=== PATIENT | male | born 1960 ===

== ENCOUNTER 2019-11-10 17:21 | Inpatient (IN) | payer OTHER, BC ==
[~2019-11-10] VITALS: Ht 172.7 cm; Wt 103.9 kg
[2019-11-10] MEDS ORDERED: GLIP10 PO (17:42)
[2019-11-10 18:25] LABS: Source, Urine Clean Catch
[2019-11-10 18:30] LABS: BASOPHILS ABSOLUTE AUTO 0.03 K/mm3 (0.00-0.23); BASOPHILS PERCENT AUTO 0 % (0-2); EOSINOPHILS ABSOLUTE AUTO 0.02 K/mm3 (0.00-0.68); EOSINOPHILS PERCENT AUTO 0 % (0-6); Hematocrit 45.2 % (37.0-53.0); Hemoglobin 15.1 g/dL (13.5-17.5); IMMATURE GRAN ABSOLUTE AUTO 0.04 K/mm3 (0.00-0.10); IMMATURE GRAN PERCENT AUTO 0 % (0-1); LYMPHOCYTES ABSOLUTE AUTO 1.76 K/mm3 (0.84-5.20); LYMPHOCYTES PERCENT AUTO 15 % (21-46); MONOCYTES ABSOLUTE AUTO 1.08 K/mm3 (0.16-1.47); MONOCYTES PERCENT AUTO 9 % (4-13); Mean Corpuscular HGB 30.4 pg (26.0-34.0); Mean Corpuscular HGB Conc 33.4 g/dL (31.5-36.5); Mean Corpuscular Volume 91 fL (80-100); Mean Platelet Volume 10.9 fL (9.1-12.4); NEUTROPHILS PERCENT AUTO 76 % (41-73); Platelet Count 249 K/mm3 (150-400); RDW Coefficient Variation 14.1 % (11.7-14.2); RDW Standard Deviation 47.8 fL (35.1-46.3); Red Blood Cell Count 4.97 M/mm3 (4.30-5.90); White Blood Cell Count 12.03 K/mm3 (4.00-11.30)
[2019-11-10 18:42] LABS: Bilirubin, Urine Neg (Neg); Blood, Urine 4+ (Neg); Glucose Qualitative, Urine 1+ (Neg); Ketones, Urine 1+ (Neg); Leukocyte Esterase, Urine 1+ (Neg); Nitrite, Urine Neg (Neg); Protein, Urine 3+ (Neg); Urobilinogen, Urine 1+ (Normal)
[2019-11-10 18:51] LABS: Alanine Aminotransfer (ALT/SGP 34 U/L (12-78); Albumin, Blood 3.4 g/dL (3.4-5.0); Albumin/Globulin Ratio 0.8 (0.8-1.8); Alk Phos 89 U/L (50-136); Anion Gap 7 mmol/L (6-16); Aspartate Aminotrans (AST/SGOT 16 U/L (12-37); Bilirubin, Total 0.8 mg/dL (0.1-1.0); Blood Urea Nitrogen 11 mg/dL (8-24); Bun/Creatinine Ratio 11.7 (12.0-20.0); CO2, Blood 26 mmol/L (21-32); Calcium, Blood 9.1 mg/dL (8.5-10.1); Chloride, Blood 98 mmol/L (98-108); Creatinine, Blood 0.94 mg/dL (0.60-1.20); Globulin, Blood 4.2 g/dL (2.2-4.0); Glomerular Filtration Rate >60 (60-); Glucose, Blood 201 mg/dL (70-99); Potassium, Blood 3.6 mmol/L (3.5-5.5); Sodium, Blood 131 mmol/L (136-145); Total Protein, Blood 7.6 g/dL (6.4-8.2); Troponin I <0.015 ng/mL (0.000-0.040)
[2019-11-10 19:24] LABS: Appearance, Urine Clear (Clear); Color, Urine Amber (P-Yellow)
[2019-11-10 19:27] LABS: Bacteria Few /hpf; Mucus Mod (0-Heavy); Squamous Epithelial Cells Rare /hpf (Few)
[2019-11-10] MEDS ORDERED: ATEN25 PO (22:03)
[2019-11-10] MEDS ORDERED: LOSARTAN-HCTZ1 EAC5 PO (22:03)
[2019-11-10] MEDS ORDERED: ROSU10TA PO (22:04)
[2019-11-10] MEDS ORDERED: EXCEDRIN EXTRA1 EACH PO (23:36)
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
[2019-11-11 07:27] LABS: BASOPHILS ABSOLUTE AUTO 0.04 K/mm3 (0.00-0.23); BASOPHILS PERCENT AUTO 0 % (0-2); EOSINOPHILS ABSOLUTE AUTO 0.07 K/mm3 (0.00-0.68); EOSINOPHILS PERCENT AUTO 1 % (0-6); Hematocrit 43.6 % (37.0-53.0); Hemoglobin 14.7 g/dL (13.5-17.5); IMMATURE GRAN ABSOLUTE AUTO 0.03 K/mm3 (0.00-0.10); IMMATURE GRAN PERCENT AUTO 0 % (0-1); LYMPHOCYTES ABSOLUTE AUTO 1.25 K/mm3 (0.84-5.20); LYMPHOCYTES PERCENT AUTO 14 % (21-46); MONOCYTES ABSOLUTE AUTO 0.94 K/mm3 (0.16-1.47); MONOCYTES PERCENT AUTO 11 % (4-13); Mean Corpuscular HGB 30.9 pg (26.0-34.0); Mean Corpuscular HGB Conc 33.7 g/dL (31.5-36.5); Mean Corpuscular Volume 92 fL (80-100); Mean Platelet Volume 11.1 fL (9.1-12.4); NEUTROPHILS ABSOLUTE AUTO 6.66 K/mm3 (1.96-9.15); NEUTROPHILS PERCENT AUTO 74 % (41-73); Platelet Count 205 K/mm3 (150-400); RDW Coefficient Variation 14.2 % (11.7-14.2); RDW Standard Deviation 48.4 fL (35.1-46.3); Red Blood Cell Count 4.76 M/mm3 (4.30-5.90); White Blood Cell Count 8.99 K/mm3 (4.00-11.30)
[2019-11-11 07:42] LABS: Anion Gap 4 mmol/L (6-16); Blood Urea Nitrogen 16 mg/dL (8-24); Bun/Creatinine Ratio 19.4 (12.0-20.0); CO2, Blood 29 mmol/L (21-32); Calcium, Blood 8.7 mg/dL (8.5-10.1); Chloride, Blood 102 mmol/L (98-108); Creatinine, Blood 0.83 mg/dL (0.60-1.20); Glomerular Filtration Rate >60 (60-); Glucose, Blood 172 mg/dL (70-99); Potassium, Blood 3.7 mmol/L (3.5-5.5); Sodium, Blood 135 mmol/L (136-145)
--- NOTE | 2019-11-11 08:00 | NUR ---
pt laying in bed awake a/ox3, pleasant and cooperative with care, follows commands well, denies pain, states he's just sore, lungs are clear t/o, resp even and unlabored no cough noted, hrr, tele in place running sr per monitor, see strip, no edema noted, ppp+2, cap refill <3sec, vs stable, afebrile, iv site is clear and patent, 20g to lfa, btx4, abd round soft nontender, voids without diff, skin c/w/d, maew, willam, denies dizziness at this time. no nueuro deficit noted. call light in reach.
--- NOTE | 2019-11-11 12:39 | NUR ---
pt resting in bed, no neuro changes or deficits noted, he feels that his soreness is 8/10, gave his toradol. he wants to take a nap at this time. call light in reach.
--- NOTE | 2019-11-11 15:15 | NUR ---
PT IS MEDICAL FLOOR, REPORT CALLED TO RECIEVING NURSE, PT TRANSFERRED TO MEDICAL VIA WHEELCHAIR WITH ALL BELONGINGS.
--- NOTE | 2019-11-11 15:41 | NUR ---
Assumed care Received report from Garcia, patient transferred from PCU 15 to Med 303. Arrived to unit via w/c with PCU tech. A/O, independently transferred self to bed. Ice water given, call light near, bed in lowest position. C/O back and L side pain. Will continue to monitor.
--- NOTE | 2019-11-11 18:41 | NUR ---
Shift Summary A/Ox4, pleasant patient who calls appropriately for needs. Medicated with scheduled Toradol with good relief. Isolation to r/o COVID. Neuro checks are normal, neurologically intact. No other acute concerns. Will continue to monitor.
--- NOTE | 2019-11-11 19:30 | NUR ---
ASSUMED CARE RECEIVED REPORT FROM GREG HAMILTON. ASSUMED CARE OF PT. RESTING COMFORTABLY AT THIS TIME, NO S/S ACUTE DISTRESS NOTED. DENIES NEEDS AT THIS TIME. CALL LIGHT, POSSESSIONS IN REACH, WILL CONTINUE TO MONITOR.
--- NOTE | 2019-11-12 04:44 | NUR ---
SHIFT SUMMARY PT ASLEEP AT THIS TIME, RESPS EVEN AND UNLABORED. NO ACUTE NEURO CHANGES NOTED T/O NIGHT, PT DENIES RUIZ, DIZZINESS, FEELING FAINT. 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 PT FEBRILE, VISIBLE CHILLS. STATES "I'M FREEZING." MEDICATED PER EMAR ORDERED. SX IMPROVING. ABD REMAINS FIRM AND DISTENDED, TENDER TO PALPATION. VSS. PT DENIES N/V, REPORTS MILD ABD PAIN, WORSENED AFTER TYLENOL. ENCOURAGED PT TO EAT SNACK TO AID IN RELIEVING SX. NO FURTHER COMPLAINTS AT THIS TIME. COVID-19 TEST PENDING. DENIES NEEDS AT THIS TIME. CALL LIGHT, POSSESSIONS IN REACH, WILL CONTINUE TO MONITOR UNTIL DAY RN ASSUMES CARE.
[2019-11-12 07:31] LABS: BASOPHILS ABSOLUTE AUTO 0.02 K/mm3 (0.00-0.23); BASOPHILS PERCENT AUTO 0 % (0-2); EOSINOPHILS ABSOLUTE AUTO 0.05 K/mm3 (0.00-0.68); EOSINOPHILS PERCENT AUTO 1 % (0-6); Hematocrit 45.9 % (37.0-53.0); Hemoglobin 14.9 g/dL (13.5-17.5); IMMATURE GRAN ABSOLUTE AUTO 0.04 K/mm3 (0.00-0.10); IMMATURE GRAN PERCENT AUTO 0 % (0-1); LYMPHOCYTES ABSOLUTE AUTO 1.93 K/mm3 (0.84-5.20); LYMPHOCYTES PERCENT AUTO 21 % (21-46); MONOCYTES ABSOLUTE AUTO 1.09 K/mm3 (0.16-1.47); MONOCYTES PERCENT AUTO 12 % (4-13); Mean Corpuscular HGB 30.5 pg (26.0-34.0); Mean Corpuscular HGB Conc 32.5 g/dL (31.5-36.5); Mean Corpuscular Volume 94 fL (80-100); Mean Platelet Volume 11.3 fL (9.1-12.4); NEUTROPHILS ABSOLUTE AUTO 6.11 K/mm3 (1.96-9.15); NEUTROPHILS PERCENT AUTO 66 % (41-73); Platelet Count 210 K/mm3 (150-400); RDW Coefficient Variation 14.5 % (11.7-14.2); RDW Standard Deviation 50.4 fL (35.1-46.3); Red Blood Cell Count 4.88 M/mm3 (4.30-5.90); White Blood Cell Count 9.24 K/mm3 (4.00-11.30)
--- NOTE | 2019-11-12 18:04 | NUR ---
PT CONTINUES TO BE A/O AND INDEPENDENT IN ROOM, USES CALL TONY APPROPRIATELY, COVID-19 TEST IS RETURNED NEG AND ISOLATION DISCONTINUED. ROCEPHIN IV AND ZITHROMAX PO STARTED TODAY. PT HAS BEEN AFEBRILE T/O THIS SHIFT. NO ACUTE CHANGES NOTED THIS SHIFT, WILL CONTINUE TO MONITOR AND REPORT TO ONCOMING RN.
--- NOTE | 2019-11-12 18:22 | NUR ---
PT FEELING "HOT" AND REQUESTED HIS TEMP BE TAKEN, RESULTS OF 102.5, 650 MG PO TYLENOL GIVEN.
--- NOTE | 2019-11-12 19:20 | NUR ---
ASSUMED CARE RECEIVED REPORT FROM GREG FLORES. ASSUMED CARE OF PT. COMFORTABLE AT THIS TIME, NO S/S ACUTE DISTRESS NOTED. DENIES NEEDS AT THIS TIME. CALL LIGHT, POSSESSIONS IN REACH, BED ALARM ON. REMINDED TO CALL WITH NEEDS. WILL CONTINUE TO MONITOR.
--- NOTE | 2019-11-12 23:30 | NUR ---
PHYSICIAN COMMUNICATION: THIS RN SPEAKING TO GREGG REED, REGARDING PT'S EPISODES OF LOOSE STOOLS AND ADMINISTRATION OF SCHEDULED DIURETIC. STATED THAT IT IS OK TO GIVE MEDICATION AND CONTINUE TO MONITOR FOR S/S DEHYDRATION. WILL CONTINUE TO MONITOR.
--- NOTE | 2019-11-13 06:23 | NUR ---
SHIFT SUMMARY PT RESTING AT THIS TIME, NO S/S ACUTE DISTRESS NOTED. WAS MONITORED EVERY 1-2 HOURS WITH NEEDS MET. HAS BEEN AFEBRILE SINCE BEGINNING OF SHIFT CHANGE. REPORTING LOOSE STOOLS, ENCOURAGED ORAL INTAKE TOLERATED TO PREVENT DEHYDRATION. PT C/O DECREASED APPETITE. PT SLEEPING ON AND OFF T/O NIGHT. NO ACUTE NEURO CHANGES NOTED, STABLE. DENIES RUIZ, DIZZINESS, SYNCOPE. NO OTHER ACUTE EVENTS NOTED. DENIES NEEDS AT THIS TIME. CALL LIGHT, POSSESSIONS IN REACH, WILL CONTINUE TO MONITOR UNTIL DAY RN ASSUMES CARE.
--- NOTE | 2019-11-13 17:24 | NUR ---
PT A/O, PLEASANT AND COOPERATIVE, GEN SORENESS IMPROVED TODAY, UP AND WALKING IN [place] THIS AFTERNOON. HAS REMAINED AFEBRILE TODAY. NO ACUTE CHANGES NOTED THIS SHIFT, WILL CONTINUE TO MONITOR AND REPORT TO ONCOMING RN
--- NOTE | 2019-11-13 19:05 | NUR ---
ASSUMED CARE RECEIVED BEDSIDE REPORT FROM GREG FLORES. ASSUMED CARE OF PT. RESTING COMFORTABLY AT THIS TIME, NO S/S ACUTE DISTRESS NOTED. DENIES NEEDS AT THIS TIME. CALL LIGHT, POSSESSIONS IN REACH, WILL CONTINUE TO MONITOR.
--- NOTE | 2019-11-13 20:45 | NUR ---
RN AND PT INTERACTION THIS RN IN ROOM ADMINISTERING MEDICATIONS TO PT. PT ASKING THIS RN IF THEY ARE ON SOCIAL MEDIA, AND IF THEY WOULD BE FRIENDS WITH PT. THIS RN REMINDING PT OF HIPAA AND MAINTAINING A PROFESSIONAL NURSE-PT RELATIONSHIP. PT INDICATED UNDERSTANDING.
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
[2019-11-14] MEDS ORDERED: AZIT250 PO (12:20)
[2019-11-14] MEDS ORDERED: CEFU500T30 PO (12:20)
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
== END 2019-11-14 13:10 | disposition home or self-care (01) | DRG 871 ==
LOC: ER 17:21 → PCU 17:22 → ER 17:22 → PCU 23:16 → MEDS 11-11 15:47 → PCU 11-11 15:47 → MEDS 11-11 15:48 → PCU 11-13 11:04 → MEDS 11-13 11:04
PROVIDERS: Hospitalist; Nurse Practitioner Acute Care; Physician Assistant; ADMIT Internal Medicine
DX: A41.9 Sepsis, unspecified organism (principal); G92 Toxic encephalopathy; E78.5 Hyperlipidemia, unspecified; V89.2XXA Person injured in unspecified motor-vehicle accident, traffic, initial encounter; I07.1 Rheumatic tricuspid insufficiency; E11.9 Type 2 diabetes mellitus without complications; I10 Essential (primary) hypertension; Z20.828 Contact with and (suspected) exposure to other viral communicable diseases
CPT/HCPCS: 36415; 70450; 71045; 74177; 80048; 80053; 81001; 82947; 84484; 85025; 87077; 87086; 87186; 93005; 93010; 93306; 93880; 94762; 96361; 96365; 96366; 96374-59; 96375; 96376; 99285-25; A9270; A9270-GY; G0378; J0696; J1885; J2405; J7030; J7050; Q9967; U0003